=== PATIENT | male | born 1975 | race Two or more races ===

== ENCOUNTER 2022-11-06 09:55 | Emergency (ER) | payer OTHER ==
[2022-11-06 10:11] VITALS: BP 161/87; PULSE 89; RESP 18; TEMP 98.4; BMI 24.4
[2022-11-06] MEDS ORDERED: IBUPROFEN 600 MG TABLET (FP) PO ONE ×2 (12:09→12:15)
[2022-11-06] MEDS ORDERED: LIDOCAINE 5% TOPICAL PATCH TP ONE (12:09)
[2022-11-06] MEDS ORDERED: LIDOCAINE 5% TOPICAL PATCH ONE (12:15)
[2022-11-06] MEDS ORDERED: LIDOCAINE PATCH REMOVAL MC ONE (22:00)
== END 2022-11-06 13:00 | disposition home or self-care (01) ==
LOC: JERFT 09:55 → JER 09:55 → JERFT 13:00
DX: M54.50 Low back pain, unspecified (principal)
CPT/HCPCS: 99283-25